=== PATIENT | male | born 1930 | race Caucasian/White ===

== ENCOUNTER → 2019-05-20 | Outpatient (CLI) | payer OTHER ==
[2012-12-20 16:00] VITALS: BP 109/72
[~2019-05-20] MED LIST: LOW DOSE ASPIRI81 MG PO
[2019-05-20 16:45] LABS: EOS # 0.2 (0.04-0.40); EOS % 2.6 % (0.0-4.0); HEMATOCRIT 46.2 % (42.0-52.0); HEMOGLOBIN 14.9 g/dL (13.5-18.0); LYMPH# 2.8 (1.50-4.00); MEAN CELL VOLUME 96 fl (78-100); MEAN CORPUSCULAR HEMOGLOBIN 31 pg (27-31); MEAN CORPUSCULAR HGB CONC 32 g/dL (33-37); MEAN PLATELET VOLUME 9.4 fl (7.4-10.4); MONO # 0.7 (0.20-0.80); NEU # 4.2 (1.40-6.50); PLATELET COUNT 244 K/mm3 (130-400); RED BLOOD COUNT 4.83 M/mm3 (4.20-5.60); RED CELL DISTRIBUTION WIDTH 12.8 % (11.5-14.5)
[2019-05-20 16:54] LABS: POTASSIUM 4.2 mmol/L (3.5-5.1); SODIUM 141 mmol/L (136-145)
[2019-05-20 16:55] LABS: CALCIUM 9.8 mg/dL (8.3-10.5)
[2019-05-20 16:57] LABS: GLUCOSE 98 mg/dL (75-110); TOTAL PROTEIN 7.3 g/dL (6.2-8.1)
[2019-05-20 16:58] LABS: CARBON DIOXIDE 26 mmol/L (23-31)
[2019-05-20 16:59] LABS: TOTAL BILIRUBIN 0.5 mg/dL (0.2-1.2)
[2019-05-20 17:02] LABS: AST-SGOT 20 U/L (5-34)
[2019-05-20 17:03] LABS: ALT/SGPT 14 U/L (0-55)
[2019-05-20 17:48] LABS: ERYTHROCYTE SEDIMENTATION RATE 22 mm/hr (0-20)
[2019-05-21 18:10] LABS: TESTOSTERONE 460 ng/dL (221-716)
== END ==
LOC: LAB 16:25
PROVIDERS: Internal Medicine
DX: Z12.5 Encounter for screening for malignant neoplasm of prostate (principal); Z12.11 Encounter for screening for malignant neoplasm of colon; I48.0 Paroxysmal atrial fibrillation; R20.2 Paresthesia of skin; N52.9 Male erectile dysfunction, unspecified

== ENCOUNTER → 2020-07-31 | Outpatient (CLI) | payer OTHER ==
[2012-12-20 16:00] VITALS: BP 109/72
[2020-07-31 14:24] LABS: EOS # 0.2 (0.04-0.40); EOS % 2.5 % (0.0-4.0); HEMATOCRIT 47.4 % (42.0-52.0); LYMPH# 2.5 (1.50-4.00); MEAN CELL VOLUME 98 fl (78-100); MEAN CORPUSCULAR HEMOGLOBIN 31 pg (27-31); MEAN CORPUSCULAR HGB CONC 32 g/dL (33-37); MEAN PLATELET VOLUME 9.3 fl (7.4-10.4); MONO # 0.7 (0.20-0.80); NEU # 4.8 (1.40-6.50); PLATELET COUNT 234 K/mm3 (130-400); RED BLOOD COUNT 4.83 M/mm3 (4.20-5.60); RED CELL DISTRIBUTION WIDTH 13.1 % (11.5-14.5); WHITE BLOOD COUNT 8.2 K/mm3 (4.8-10.8)
[2020-07-31 14:32] LABS: POTASSIUM 4.6 mmol/L (3.5-5.1)
[2020-07-31 14:33] LABS: CALCIUM 9.3 mg/dL (8.3-10.5)
[2020-07-31 14:35] LABS: TOTAL PROTEIN 7.6 g/dL (6.2-8.1)
[2020-07-31 14:36] LABS: TOTAL BILIRUBIN 0.4 mg/dL (0.2-1.2)
[2020-07-31 15:15] LABS: ERYTHROCYTE SEDIMENTATION RATE 16 mm/hr (0-20)
[2020-07-31 22:39] LABS: TESTOSTERONE 529 ng/dL (221-716)
== END ==
LOC: LAB 14:09
PROVIDERS: Internal Medicine
DX: Z12.5 Encounter for screening for malignant neoplasm of prostate (principal); Z12.11 Encounter for screening for malignant neoplasm of colon; I48.91 Unspecified atrial fibrillation; I48.92 Unspecified atrial flutter; E78.2 Mixed hyperlipidemia; N52.9 Male erectile dysfunction, unspecified; K90.9 Intestinal malabsorption, unspecified; R20.2 Paresthesia of skin